=== PATIENT | female | born 1935 | race Caucasian/White ===

== ENCOUNTER 2020-07-22 12:47 | Outpatient (REF) | payer MEDICARE, OTHER, SELFPAY ==
--- NOTE | 2020-07-22 16:13 | MHC.AU.P13 ---
Adult Audiological Evaluation Date of Visit: 07/22/20 Reason for Appointment: Audiologic re-evaluation to determine possible change in hearing ability due to increased difficulties understanding speech. Previous Hearing Test Results: Normal hearing threshold at 250 Hz, dropping to a severe high frequency sensorineural hearing loss bilaterally. Medical History: Medical History: Diabetes Medical History: Crohn s Disease Hearing Instrument History- Right Ear: Computer Art Instructor: [employer] Model: OPN 3 mini RITE Serial Number: [id number] Battery Size: 312 Warranty: 01/26/2022 Hearing Instrument History- Left Ear: Computer Art Instructor: Oticon Model: OPN 3 mini RITE Serial Number: [id number] Battery Size: 312 Warranty: 11/20/2022 Otoscopy: Right Ear: Unremarkable Left Ear: Unremarkable Tympanometry: Right Ear: Normal Middle Ear System (Type A) Left Ear: Normal Middle Ear System (Type A) Hearing Evaluation: Transducer(s) Used: Insert Earphones Bone Conduction Method: Conventional Audiometry Stimuli Used: Pure Tones Right Ear: Description of Hearing: Normal hearing threshold at 250 Hz dropping to a severe high frequency sensorineural hearing loss Left Ear: Description of Hearing: Normal hearing level at 250 Hz dropping to severe high frequency sensorineural hearing l loss Speech Recognition Threshold (SRT): Method Used: Monitored Live Voice Stimuli Used: Spondee Words Right Ear: 30 dB HL Left Ear: 30 dB HL Word Discrimination: Method: Monitored Live Voice Word Lists Used: NU-6 Right Ear: 56% at a listening level of 70 dB HL 88% at a listening level of 80 dB HL Left Ear: 60% at a listening level of 70 dB HL 80% at a listening level of 80 dB HL Comparison: Compared to the most recent evaluation: Hearing is stable. Recommendations: Recommendations: Audiological re-evaluation in one year. Recommendations (Other): Hearing aids were re-programmed to try to improve the clarity of speech. If further adjustments are needed, advised to schedule another appointment Diagnosis: Primary Diagnosis: H90.3 Bilateral Sensorineural Hearing Loss Services Performed: Services Performed: Comprehensive Audiological Evaluation (CPT 97519) Tympanometry (CPT 71819) Signature: Student/Clinical Fellow: No I have reviewed/agreed with student/fellow documentation: N/A Provider: Roxi Lopez, [facility]
== END 2020-07-22 12:48 | disposition home or self-care (01) ==
LOC: HO.SH 12:47
PROVIDERS: PCP Internal Medicine; Visit Provider Internal Medicine
DX: H90.3 Sensorineural hearing loss, bilateral (principal); E11.9 Type 2 diabetes mellitus without complications; K50.90 Crohn's disease, unspecified, without complications
CPT/HCPCS: 92557; 92567

== ENCOUNTER 2021-01-20 11:42 | Outpatient (REF) | payer SELFPAY | END 2021-01-20 11:43 | disposition home or self-care (01) | LOC: HO.HAP 11:42 | PROVIDERS: Visit Provider Internal Medicine | DX: Z13.89 Encounter for screening for other disorder (principal) ==

== ENCOUNTER 2021-02-10 11:34 | Outpatient (REF) | payer SELFPAY | END 2021-02-10 11:35 | disposition home or self-care (01) | LOC: HO.HAP 11:34 | PROVIDERS: Visit Provider Internal Medicine | DX: Z13.89 Encounter for screening for other disorder (principal) ==

== ENCOUNTER 2021-04-03 13:31 | Outpatient (REF) | payer SELFPAY | END 2021-04-03 13:32 | disposition home or self-care (01) | LOC: HO.HAP 13:31 | PROVIDERS: Visit Provider Internal Medicine | DX: Z13.89 Encounter for screening for other disorder (principal) ==

== ENCOUNTER 2021-04-10 09:24 | Outpatient (REF) | payer SELFPAY ==
--- NOTE | 2021-04-10 10:13 | MHC.AU.HFU ---
Hearing Instrument Follow-Up- Binaural Date of Visit: 04/10/21 Right Ear: Dumper Bailer Operator: Oticon Model: OPN 3 mini RITE Serial Number: [id number] Repair Warranty: 01/26/2022 Loss and Damage Warranty: USED 04/03/2021 Battery Size: 312 Color: Terrac[employer] Wafers Etch Operator: #2 85 gain Type of Dome: 8 mm Open Type of Wax Guard: Prowax minifit Dispensed By: [facility] Date of Fittin01/28/2019 Left Ear: Dumper Bailer Operator: Oticon Model: OPN 3 mini RITE Serial Number: [id number] Repair Warranty: 11/20/2022 Loss and Damage Warranty: 11/20/2022 Battery Size: 312 Color: [employer] Wafers Etch Operator: #2 85 gain Type of Dome: 8 mm Open Type of Wax Guard: Prowax minifit Dispensed By: [facility] Date of Fittin10/29/2019 Follow-Up Summary: Patient reports she is not hearing well from the left aid. Otoscopy shows deep cerumen blocking view of most of the left tympanic membrane. Right ear clear. Used Ear Wax M.D. drops and attempted removal, but cerumen is vry deep. The drops started to dissolve the wax and most of the tympanic membrane is visible now. Patient reports improved hearing. If problem continues, advise ENT remove cerumen. Fit the replaced right aid with #2 85 gain timber cutter and 8mm open dome and programmed with the left aid to January 2021 settings. Patient reports improved hearing ability. Deleted the old right aid from the cell phone and [employer] araseli and connected both aids to phone and araseli and practiced. Patient needed to increase the volume of her phone for improved clarity of speaker's voice. Recommendations: Recommendations: Hearing instrument follow-up or maintenance as needed. Please contact our clinic with any questions or concerns. Diagnosis Code(s): Primary Diagnosis: H90.3 Bilateral Sensorineural Hearing Loss Services Performed: Loss and Damage Replacement Fee: 1 Signature: Provider: Roxi Lopez, [facility]
== END 2021-04-10 09:25 | disposition home or self-care (01) ==
LOC: HO.HAP 09:24
PROVIDERS: Visit Provider Internal Medicine
DX: Z46.1 Encounter for fitting and adjustment of hearing aid (principal); H90.3 Sensorineural hearing loss, bilateral
CPT/HCPCS: V5299

== ENCOUNTER 2021-04-17 10:51 | Outpatient (REF) | payer SELFPAY ==
--- NOTE | 2021-04-17 11:20 | MHC.AU.P13 ---
Hearing Instrument Problem Date of Visit: 04/17/21 Right Ear: Wet Process Head Miller: Oticon Model: OPN 3 mini RITE Serial Number: [id number] Repair Warranty: 01/26/2022 Loss and Damage Warranty: USED 04/03/2021 Battery Size: 312 Color: Terracotta Time Motion Analyst: #2 85 gain Type of Dome: 8 mm Open Type of Wax Guard: Prowax minifit Dispensed By: [facility] Date of Fittin01/28/2019 Left Ear: Wet Process Head Miller: Oticon Model: OPN 3 mini RITE Serial Number: [id number] Repair Warranty: 11/20/2022 Loss and Damage Warranty: 11/20/2022 Battery Size: 312 Color: Terracotta Time Motion Analyst: #2 85 gain Type of Dome: 8 mm Open Type of Wax Guard: Prowax minifit Dispensed By: [facility] Date of Fittin10/29/2019 Follow-Up Summary: Patient brought in right aid - not working at all. [facility] Recommendations: Recommendations: Patient will be contacted when materials have arrived. Signature: Provider: KARIS Flores-
== END 2021-04-17 10:52 | disposition home or self-care (01) ==
LOC: HO.HAP 10:51
PROVIDERS: Visit Provider Internal Medicine
DX: Z13.89 Encounter for screening for other disorder (principal)

== ENCOUNTER 2021-04-27 13:59 | Outpatient (REF) | payer SELFPAY | END 2021-04-27 14:00 | disposition home or self-care (01) | LOC: HO.HAP 13:59 | PROVIDERS: Visit Provider Internal Medicine | DX: Z13.89 Encounter for screening for other disorder (principal) ==

== ENCOUNTER 2022-05-28 10:48 | Outpatient (REF) | payer MEDICARE, OTHER, SELFPAY ==
--- NOTE | 2022-06-05 12:22 | MHC.AU.AHA ---
Adult Audiological Evaluation Date of Visit: 05/28/22 Franchise Consultant Used: Not Applicable Reason for Appointment: Audiologic re-evaluation to determine possible change in hearing ability. Jocelyn has a long-standing history of bilateral hearing loss and uses binaural hearing aids. Previous Hearing Test Results: 07/22/2020 [facility] Normal hearing threshold at 250 Hz, sloping to a moderately-severe sensorineural hearing loss bilaterally with 56% speech understanding for the right ear and 60% for the left ear at 70 dB HL Medical History: Medical History: Diabetes Medical History: Crohn s Disease Hearing Instrument History- Right Ear: Home Companion: Oticon Model: OPN 3 mini RITE Serial Number: [id number] Battery Size: 312 Repair Warranty: 01/26/2022 Loss and Damage Warranty: used 04/05/2021 - Patient reported finding the aid 05/28/2022 Dispensed By: [facility] Date of Fittin01/28/2019 Hearing Instrument History- Left Ear: Home Companion: Oticon Model: OPN 3 mini RITE Serial Number: [id number] Battery Size: 312 Warranty: 11/20/2022 Loss and Damage Warranty: 11/20/2022 Dispensed By: [facility] Date of Fittin10/29/2019 Otoscopy: Right Ear: Unremarkable Left Ear: Unremarkable Tympanometry: Tympanometry not performed as previus testing has indicated normal middle ear functio bilaterally Hearing Evaluation: Transducer(s) Used: Insert Earphones Bone Conduction Method: Conventional Audiometry Stimuli Used: Pure Tones Right Ear: Description of Hearing: Borderline normal hearing levels at 250 Hz, sloping to a moderately-severe high frequency sensorineural hearing loss Left Ear: Description of Hearing: Borderline normal hearing levels at 250 Hz, sloping to a moderately-severe high frequency sensorineural hearing loss Speech Recognition Threshold (SRT): Method Used: Monitored Live Voice Stimuli Used: Spondee Words Right Ear: 45 dB HL Left Ear: 45 dB HL Word Discrimination: Method: Monitored Live Voice Word Lists Used: NU-6 Right Ear: 80% at 85 dB HL Left Ear: 80% at 85 dB HL Comparison: Compared to the most recent evaluation: Thresholds have decreased in the left ear. Stable speech discrimination, both ears Recommendations: Patient wants to purchase a new hearing aid as her medical insurance covers a new hearing aid every 2 years. Medical clearance from a physician is required before fitting. Hearing aid maintenance performed today. Hearing aid(s) reprogrammed with updated test results. Audiological re-evaluation in one year. Diagnosis: Primary Diagnosis: H90.3 Bilateral Sensorineural Hearing [place] Signature: Provider: Roxi Lopez, EM[facility]
== END 2022-05-28 10:49 | disposition home or self-care (01) ==
LOC: HO.SH 10:48
PROVIDERS: Visit Provider Internal Medicine
DX: Z46.1 Encounter for fitting and adjustment of hearing aid (principal); H91.92 Unspecified hearing loss, left ear
CPT/HCPCS: 92557

== ENCOUNTER 2022-05-28 11:58 | Outpatient (REF) | payer SELFPAY ==
--- NOTE | 2022-05-28 15:17 | MHC.AU.HAS ---
Hearing Aid Evaluation Date of Visit: 05/28/22 Historical Information: Description of Hearing: Mild sloping to moderately-severe sensorineural hearing loss bilaterally Current personal amplification information, if applicable: Binaural Oticon OPN 3 mini RITE Summary: Patient recently found the right aid she previously lost and paid for L&D replacement. Patient is eligible for new hearing aid through [facility]. Will order a left aid as she already has 2 right aids. Hearing Aid Prescription: Based on the individual?s shared listening needs, communication environments, dexterity, desire for connectivity, and personal preferences, the following prescription for amplification has been made: Left ear: Electric Scoop Operator: Oticon Model: OPN 3 mini RITE Battery Size: 312 Color: Terracotta Credit Products Officer: #2 85 gain Type of Dome: 10 mm Open Plan of Care: Patient wishes to purchase hearing aids as prescribed Action Taken/Action Needed: Medical Clearance to be requested from PCP/ENT Hearing Instrument Fitting to be scheduled when materials arrive Primary Diagnosis: 90.3 Bilateral SNHL Signature:Provider: Shannan Lpoez, EM[facility]
--- NOTE | 2022-05-28 15:19 | MHC.AU.MED ---
Medical Clearance for Hearing Instrumentation Date: 05/28/22 Patient Name: Jocelyn Mccall Date of : 1935 Primary Care Provider: Referring Provider: Jolynn Mead MD We have seen your patient on 05/28/22 and have determined that they are a candidate for amplification (See accompanying report). Specifically, they would benefit from: Hearing aid use in both ears There is a statute that addresses Medical Evaluation Requirements prior to fitting a patient with a hearing aid. According to [place] statute 265 CMR:6.03(1), (a) General. Except as provided in 265 CMR 6.03(1)(b), a correctional manager shall not sell a hearing aid unless the prospective user has presented to the correctional manager a written statement signed by a licensed physician that states that the patient's hearing loss has been medically evaluated and the patient may be considered a candidate for a hearing aid. The medical evaluation must have taken place within the preceding six months. Please note: Due to the [place] Statute referenced above, we cannot accept a signature other than that of a licensed physician. OIL WINTERIZER and PA signatures cannot be accepted. I am in agreement with the above recommendation. There is no medical contraindication for hearing instrumentation. Physician Signature Date Physician Name (Printed)
== END 2022-05-28 11:59 | disposition home or self-care (01) ==
LOC: HO.HAP 11:58
PROVIDERS: Visit Provider Internal Medicine
DX: Z46.1 Encounter for fitting and adjustment of hearing aid (principal); H90.3 Sensorineural hearing loss, bilateral
CPT/HCPCS: 92591

== ENCOUNTER 2022-07-27 12:52 | Outpatient (REF) | payer OTHER, SELFPAY | END 2022-07-27 12:53 | disposition home or self-care (01) | LOC: HO.HAP 12:52 | PROVIDERS: Visit Provider Internal Medicine | DX: Z46.1 Encounter for fitting and adjustment of hearing aid (principal); H90.3 Sensorineural hearing loss, bilateral | CPT/HCPCS: 92700; V5257 ==

== ENCOUNTER 2022-12-21 12:18 | Outpatient (REF) | payer SELFPAY | END 2022-12-21 12:19 | disposition home or self-care (01) | LOC: HO.HAP 12:18 | PROVIDERS: Visit Provider Internal Medicine | DX: Z13.89 Encounter for screening for other disorder (principal) ==

== ENCOUNTER 2023-11-15 12:22 | Outpatient (REF) | payer MEDICARE, OTHER, SELFPAY ==
--- NOTE | 2023-11-15 13:54 | MHC.AU.HA3 ---
Hearing Instrument Follow-Up- Binaural Date of Visit: 11/15/23 Right Ear: Model Aquilino, Color, Serial Number: Tatiana OPN 3 Mery Good #[id number] (replacement for [id number] L&D used 04/05/21 then aid found 05/28/22) Border Patrol Officer Repair Warranty: 01/26/2022 Border Patrol Officer Loss and Damage Warranty: used 04/05/2021 - Patient reported finding the aid 05/28/2022 [facility] Service Plan: Battery Size: 312 Regional Account Director/Slim Tube: 2 85 gain Earmold/Dome/CShell/SlimTip:10 mm Open Type of Wax Guard: Prowax minifit Dispensed By: [facility] Date of Fittin01/28/2019 Left Ear: Model Aquilino, Color, Serial Number: Tatiana OPN S 3 Mery Good #[id number] Border Patrol Officer Repair Warranty: 07/05/2025 Border Patrol Officer Loss and Damage Warranty: 07/05/25 [facility] Service Plan: Battery Size: 312 Regional Account Director/Slim Tube: #2 85 gain Earmold/Dome/CShell/SlimTip: 10 mm Open Type of Wax Guard: Prowax minifit Dispensed By: [facility] Date of Fittin10/29/2019 Follow-Up Summary: Jocelyn was scheduled for evaluation today. She is interested in pursuing new binaural amplification now that she has an increased benefit with [employer]. As she last used her benefit in Jul 2022, I recommended postponing evaluation so that it may be done within six months of an anticipated new fitting date. She brought with her 4 hearing aids today, reporting that some work and some don't and she isn't sure if they're broken or just in need of cleaning. Cleaned and checked two right OPN 3 aids, one left OPN 3, and one left OPN S 3. All functional with positive listening check after cleaning, dome change, and wax guard change. Jocelyn departed today with a pair of OPN aids on her ears and connected to her iPhone, the remaining aids were placed in her carrying case. Recommendations: Recommendations: Hearing instrument follow-up or maintenance as needed. Please contact our clinic with any questions or concerns. Return for evaluation as scheduled. Diagnosis Code(s): Primary Diagnosis: H90.3 Bilateral Sensorineural Hearing Loss Signature: Provider: Lola Rojo, [facility]
== END 2023-11-15 12:23 | disposition home or self-care (01) ==
LOC: HO.SH 12:22
PROVIDERS: Visit Provider Internal Medicine
DX: Z13.89 Encounter for screening for other disorder (principal)

== ENCOUNTER 2024-05-28 14:31 | Outpatient (REF) | payer SELFPAY | END 2024-05-28 14:32 | disposition home or self-care (01) | LOC: HO.HAP 14:31 | PROVIDERS: PCP Internal Medicine; Visit Provider Internal Medicine | DX: Z13.89 Encounter for screening for other disorder (principal) ==

== ENCOUNTER 2024-06-12 12:38 | Outpatient (REF) | payer MEDICARE, OTHER, SELFPAY | END 2024-06-12 12:39 | disposition home or self-care (01) | LOC: HO.SH 12:38 | PROVIDERS: Visit Provider Internal Medicine | DX: Z01.118 Encounter for examination of ears and hearing with other abnormal findings (principal); H90.3 Sensorineural hearing loss, bilateral | CPT/HCPCS: 92552; 92556 ==

== ENCOUNTER 2024-07-03 09:10 | Outpatient (REF) | payer MEDICARE, OTHER, SELFPAY ==
--- NOTE | 2024-07-03 12:30 | MHC.AU.HA3 ---
Hearing Instrument Follow-Up- Binaural Date of Visit: 07/03/24 Right Ear: Aquilino, Model, Color, Serial Number: Tatiana OPN S3 Mery Good #[id number] Hydro Excavation Operator Repair Warranty: 08/26/25 Hydro Excavation Operator Loss and Damage Warranty: 08/26/25 [facility] Service Plan: 08/26/25 Battery Size: 312 Cath Lab Radiological Technologist/Slim Tube: 2 85 gain Earmold/Dome/CShell/SlimTip:10 mm closed Type of Wax Guard: Prowax minifit Dispensed By: [facility] Date of Fittin07/27/22 Left Ear: Aquilino, Model, Color, Serial Number: Tatiana OPN 3 Mery Good #[id number] Hydro Excavation Operator Repair Warranty: 11/20/22 Hydro Excavation Operator Loss and Damage Warranty: 11/20/22 [facility] Service Plan: Battery Size: 312 Cath Lab Radiological Technologist/Slim Tube: #2 85 gain Earmold/Dome/CShell/SlimTip: 10 mm closed Type of Wax Guard: Prowax minifit Dispensed By: [facility] Date of Fittin10/29/2019 Follow-Up Summary: Jocelyn reports she dropped her right Opn 3 in a glass of water. Would like the left Opn S 3 that she hadn't been wearing made to work for her right ear. Put on a right helper driver and mimiced settings in the right Opn 3 to the Opn S 3. Good subjective comfort and benefit reported. Recommendations: Recommendations : Return as scheduled for hearing aid consultation. Diagnosis Code(s): Primary Diagnosis: H90.3 Bilateral Sensorineural Hearing Loss Signature: Provider: Lola Rojo, [facility]
== END 2024-07-03 09:11 | disposition home or self-care (01) ==
LOC: HO.HAP 09:10
PROVIDERS: Visit Provider Internal Medicine
DX: Z13.89 Encounter for screening for other disorder (principal)

== ENCOUNTER 2024-07-13 15:10 | Outpatient (REF) | payer SELFPAY ==
--- NOTE | 2024-07-14 12:37 | MHC.AU.HA1 ---
Hearing Aid Evaluation Date of Visit: 07/13/24 Historical Information: Description of Hearing: Borderline normal sloping to severe sensorineural hearing loss, bilateral. Current personal amplification information, if applicable: Opn S3 miniRITE on the right ear, Opn 3 miniRITE on the left ear. Summary: Jocelyn has been wearing mismatched hearing aid models for some time now and has been frustrated with phone connectivity issues. She uses an iPhone. Additionally, she notes frustration hearing in environments such as parties and restaurants. Discussed new amplification options. Recommended binaural pair of matched technology. Jocelyn notes preference for battery operated aids over rechargeable. She is interested in remote microphone technology. Hearing Aid Prescription: Based on the individual?s shared listening needs, communication environments, dexterity, desire for connectivity, and personal preferences, the following prescription for amplification has been made: Right ear: Make, Model, Color: Oticon Real 1 miniRITE T chestnut Battery Size: 312 Reading Intervention Teacher/Slim Tube: 2 85 Type of Earmold/Dome/CShell/SlimTip: 10 mm closed Left ear: Make, Model, Color: Oticon Real 1 miniRITE T chestnut Battery Size: 312 Reading Intervention Teacher/Slim Tube: 2 85 Type of Earmold/Dome/CShell/SlimTip: 10 mm closed Plan of Care: Patient wishes to purchase hearing aids as prescribed Action Taken/Action Needed: Medical Clearance to be requested from PCP/ENT Hearing Instrument Fitting to be scheduled when materials arrive Comments: Do not fit before 07/27/24. Primary Diagnosis: H90.3 Bilateral Sensorineural Hearing Loss Signature: Provider: Lola Rojo, [facility]
== END 2024-07-13 15:11 | disposition home or self-care (01) ==
LOC: HO.HAP 15:10
PROVIDERS: Visit Provider Internal Medicine
DX: Z46.1 Encounter for fitting and adjustment of hearing aid (principal); H90.3 Sensorineural hearing loss, bilateral
CPT/HCPCS: 92590

== ENCOUNTER 2024-08-05 14:28 | Outpatient (REF) | payer SELFPAY ==
--- NOTE | 2024-08-05 16:32 | MHC.AU.HA2 ---
Hearing Instrument Fitting- Adult- Binaural Date of Visit: 08/05/24 Hearing Instruments Dispensed: Right Ear: Make, Model, Color, Serial Number: Oticon Real 1 miniRITE T chestnut [id number] Student Outreach Coordinator Repair Warranty: 08/13/2027 Student Outreach Coordinator Loss and Damage Warranty: 08/13/2027 [facility] Service Plan: 08/26/2025 (carried over from her last purchase, Jocelyn opted out of service plan on these aids and will have to pay for services after 08/26/25) Battery Size: 312 Yeast Tender/Slim Tube: 2 85 Earmold/Dome/CShell/SlimTip: 10 mm closed Type of Wax Guard: Prowax minifit Left Ear: Make, Model, Color, Serial Number: Oticon Real 1 miniRITE T chestnut [id number] Student Outreach Coordinator Repair Warranty: 08/13/2027 Student Outreach Coordinator Loss and Damage Warranty: 08/13/2027 [facility] Service Plan: 08/26/2025 (carried over from her last purchase, Joeclyn opted out of service plan on these aids and will have to pay for services after 08/26/25) Battery Size: 312 Yeast Tender/Slim Tube: 2 85 Earmold/Dome/CShell/SlimTip: 10 mm closed Type of Wax Guard: Prowax minifit Accessories/Assistive Technology: Oticon Connectclip [id number] Warranty 08/13/2025 Summary of Fitting: Fit with and oriented to binaural Oticon Real 1 miniRITE T HAs. Verified to L 5 Adult targets. VC enabled, reviewed use. Reviewed precautions and maintenance- long time hearing aid user. Jocelyn took her old aids, packed up in the new hearing aid case. Paired with promotional connect clip and reviewed use as remote microphone. Paired with phone and connected with araseli. Sent up front to pay and schedule follow up, provided itemized receipt for insurance reimbursement claim. Recommendations: Recommendations: A hearing instrument follow-up was scheduled. Diagnosis Code(s): Primary Diagnosis: H90.3 Bilateral Sensorineural Hearing Loss Signature: Provider: Lola Rojo, CCC-A
== END 2024-08-05 14:29 | disposition home or self-care (01) ==
LOC: HO.HAP 14:28
PROVIDERS: Visit Provider Internal Medicine
DX: Z46.1 Encounter for fitting and adjustment of hearing aid (principal); H90.3 Sensorineural hearing loss, bilateral
CPT/HCPCS: V5262

== ENCOUNTER 2024-08-31 13:52 | Outpatient (REF) | payer SELFPAY ==
--- NOTE | 2024-08-31 16:23 | MHC.AU.HA3 ---
Hearing Instrument Follow-Up- Binaural Date of Visit: 08/31/24 Right Ear: Make, Model, Color, Serial Number: Oticon Real 1 miniRITE T chestnut [id number] Vessel Engineer Repair Warranty: 08/13/2027 Vessel Engineer Loss and Damage Warranty: 08/13/2027 [facility] Service Plan: 08/26/2025 (carried over from her last purchase, Jocelyn opted out of service plan on these aids and will have to pay for services after 08/26/25) Battery Size: 312 Technical Service Representative/Slim Tube: 2 85 Earmold/Dome/CShell/SlimTip:10 mm closed Type of Wax Guard: Prowax minifit Dispensed By: [facility] Date of Fittin08/05/2024 Left Ear: Make, Model, Color, Serial Number: Oticon Real 1 miniRITE T chestnut [id number] Vessel Engineer Repair Warranty: 08/13/2027 Vessel Engineer Loss and Damage Warranty: 08/13/2027 [facility] Service Plan: 08/26/2025 (carried over from her last purchase, Jocelyn opted out of service plan on these aids and will have to pay for services after 08/26/25) Battery Size: 312 Technical Service Representative/Slim Tube: 2 85 Earmold/Dome/CShell/SlimTip: 10 mm closed Type of Wax Guard: Prowax minifit Dispensed By: [facility] Date of Fittin08/05/2024 Follow-Up Summary: Seen for follow up on recently fit Oticon Real 1 HAs. Jocelyn reports doing well except when listening to music. Reports she has found live music to be too tinny. Also having problems with phone connection. Added a music program, reviewed use. Found Jocelyn's phone not finding the hearing aids. Ensured ConnectClip was off. Turned aids off and on, forgot them and attempted re-pairing them. Ultimately the phone paired with the hearing aids after the phone was restarted. Advised to open and close battery doors and re-start phone if she has connectivity problems in the future. Recommended additional follow up to check on music program and phone issues. Recommendations: Recommendations: An additional follow-up was scheduled to monitor progress. Diagnosis Code(s): Primary Diagnosis: H90.3 Bilateral Sensorineural Hearing Loss Signature: Provider: Lola Rojo, CCC-A
== END 2024-08-31 13:53 | disposition home or self-care (01) ==
LOC: HO.HAP 13:52
PROVIDERS: Visit Provider Internal Medicine
DX: Z13.89 Encounter for screening for other disorder (principal)

== ENCOUNTER 2024-09-25 10:46 | Outpatient (REF) | payer SELFPAY ==
--- NOTE | 2024-09-25 13:32 | MHC.AU.HA3 ---
Hearing Instrument Follow-Up- Binaural Date of Visit: 09/25/24 Right Ear: Make, Model, Color, Serial Number: Oticon Real 1 miniRITE T chestnut [id number] Solar Energy System Installer Helper Repair Warranty: 08/13/2027 Solar Energy System Installer Helper Loss and Damage Warranty: 08/13/2027 [facility] Service Plan: 08/26/2025 (carried over from her last purchase, Jocelyn opted out of service plan on these aids and will have to pay for services after 08/26/25) Battery Size: 312 Chief Mechanical Officer/Slim Tube: 2 85 Earmold/Dome/CShell/SlimTip:10 mm closed Type of Wax Guard: Prowax minifit Dispensed By: [facility] Date of Fittin08/05/2024 Left Ear: Make, Model, Color, Serial Number: Oticon Real 1 miniRITE T chestnut [id number] Solar Energy System Installer Helper Repair Warranty: 08/13/2027 Solar Energy System Installer Helper Loss and Damage Warranty: 08/13/2027 [facility] Service Plan: 08/26/2025 (carried over from her last purchase, Jocelyn opted out of service plan on these aids and will have to pay for services after 08/26/25) Battery Size: 312 Chief Mechanical Officer/Slim Tube: 2 85 Earmold/Dome/CShell/SlimTip: 10 mm closed Type of Wax Guard: Prowax minifit Dispensed By: [facility] Date of Fittin08/05/2024 Follow-Up Summary: Seen for follow up. Jocelyn reports ongoing problems with connectivity. It can be a struggle to get the streaming working, while at times it seems to happen automatically. Jocelyn is working with her iphone and her ipad, she also has a bluetooth speaker that she uses at times. Discussed the challenges presented when multiple devices are involved in streaming connections. Also noted that issues with iphone to ipad handoff with hearing aids have been noted following [email or web address] updates. She reports talking to [employer] and they advised her to clear her cache on her ipad and that seemed to help. Checked iphone settings and araseli to make sure everything looks correct. Showed how to select audio device during a call on iPhone. Provided [employer] connectivity support hotline as I believe it would be beneficial for Jocelyn to be able to speak with someone at [employer] while she is in her home environment with multiple devices present and they may have suggestions or settings that should be looked at. Otherwise, Jocelyn reports the hearing aids are working well. She plans to return for maintenance as needed. Recommendations: Recommendations: Hearing instrument follow-up or maintenance as needed. Diagnosis Code(s): Primary Diagnosis: H90.3 Bilateral Sensorineural Hearing Loss Signature: Provider: Lola Rojo, [facility]
== END 2024-09-25 10:47 | disposition home or self-care (01) ==
LOC: HO.HAP 10:46
PROVIDERS: Visit Provider Internal Medicine
DX: Z13.89 Encounter for screening for other disorder (principal)

== ENCOUNTER 2025-03-26 13:10 | Outpatient (REF) | payer SELFPAY ==
--- OUTSIDE RECORDS SUMMARY | 2025-03-26 13:12 | XMS_ITS | Data Portability ---
Author Organization [facility] Kaylyn KING'S Address [address] [place] [address] Care Team Providers Care Template Layout Worker Name Role Phone CHAPIN MARLYS Referring Provider Assessment Encounter Date Assessment Date Assessment LastModified by Organization Details LastModified Time 02/24/2013 02/24/2013 Recommendation: I recommend to dispense prescription as written. Patient should follow physician's orders for therapy and other services. Brace is for the day Functional Goals: Protect feet [email or web address] Not available 03/03/2013 10:37:00 04/13/2013 04/13/2013 I didobserve the patient ambulate successfully. Patient states both sandals and new shoes (w/each of their new custom orthotics) are comfortable. Functional Goals: Pressure dispesement Increased Stability dispersement of pressures [email or web address] Not available 04/13/2013 17:39:20 05/28/2013 05/28/2013 Jocelyn (77 yo F) was seen today for adjustment to her R diabetic shoe and R inserts. Pt presents today with small scabbing on 2nd digit IP due to hammertoes. Skin condition is healthy on L foot and shoe/FO fit appears to have enough room in the toe box. Pt reports neuropathy and she checks her skin conditiong on regular basis. Pt prefers to wear the shoes with the 1/8 blue liner under the custom inserts. R inserts were thinned at foot plate, blue liner trimmed at toe plate and shoes spot relieved at site of 2nd hammertoe with shoe stretcher. Pt immediately notices more room in the shoe and the 2nd digit is no longer pushing against the surface. Pt lives in [place], [place] and would like to find pedorthic provider closer to home. I provided list of 4 O&P offices in [facility]. I did observe the patient ambulate successfully. [email or web address] Not available 05/28/2013 16:41:44 03/22/2017 03/22/2017 Custom Device: Is a custom device needed for this patient? NO Reasons for Custom Device: Explain Reasoning: The patient will be seen on an as needed basis. Orthosis: is in stock and delivered today. Device delivered: Prefab, OTS If Prefab, Custom Fit, explain modifications - what was done and why: If Custom device, state reasons and provide narrative: Explain Reasoning: Orthotic Goals: Choose all that apply Provide Support Limit Motion Positioning Improve Stability Promote Healing Other (please specify): [email or web address] Not available 03/22/2017 15:01:50 Plan of Treatment Reminders Order Date Submit Date Provider Last Modified By Organization Details Last Modified Time Details Appointments None record ed. Lab None record ed. Referral None record ed. Procedures None record ed. Surgeries None record ed. Imaging None record ed. Medication Orders None record ed. Patient TargetsNo targets recorded. Patient Instructions Encounter Date Encounter Id Patient Instructions Last Modified By Organization Details Last Modified Time 02/24/2013 [id number] The following wa s discussed with the patient regarding a follow up plan Patient was provided with my business card and asked to call if any questions arise. [email or web address] Not available 03/03/2013 10:37:00 04/13/2013 [id number] The caregiverwasinstructed on a break-in period. Patient encouraged to slowly break in sandal inserts; as these inserts by fabrication are firmer than the ones for the PW minor shoes. The patientwasinstructed on skin checks and hygiene. The patientdidvoice an understanding of these directions. The patientdidreceive written instructions. The patientwas provided with our numbers and instructed to call with any questions or problems. [email or web address] Not available 04/13/2013 17:39:20 05/28/2013 [id number] Pt lives in [facility] and did not bring another pair of shoes with her today, unable to keep the shoes overnight due to these reasons. Explained that the shoe may need to be restretched if it does flatten a bit after today's adjustment. Pt understands and agrees to f/u with any concerns. [email or web address] Not available 05/28/2013 16:41:44 03/22/2017 [id number] Device provided has good fit and function. Patient agrees with my assessment. Patient does understand wear and care of device. Patient does understand how to don and doff the device. Patient received written instructions. Patient was provided with my business card and agrees to call if any problems. [email or web address] Not available 03/22/2017 15:00:41 Reason for Referral None Reported. 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 Procedures Surgical History Date Name Laterality Status Provider Name and Address Organization Details Recorded Time 7 BI Procedures completed Nicolas Rosa [place] [facility] 03/22/2017 15:01:37 3 DMO Follow Up completed Sabiha Helton [place] [facility] 05/28/2013 16:29:18 3 Lower Extremity Fitting II completed Erin Glez, CO [address], [place], [address], [facility] 04/13/2013 17:39:20 3 Lower Extemity Eval completed Kori Martínez [facility] 02/27/2013 16:08:06 Imaging Results None recorded. Procedure Notes None recorded. Medical Equipment None Reported. Vitals None Recorded Social History None recorded. Functional Status None recorded. Mental Status None recorded. Family History Nothing Reported. Medical History No medical history recorded. Gynecological HistoryNo gynecological history recorded. Obstetrics History GPAL:G 0 P 0 0 0 0 Past Encounters Encounter ID Performer Location Encounter Start Date Encounter Closed Date Diagnosis/Indication Diagnosis SNOMED-CT Code Diagnosis ICD10 Code Diagnosis Note [id number] Lisandro Witt [address] [place] [address] 08/09/2011 11:35:04 08/10/2011 08:52:38 [id number] Kori Martínez CPO [address] [place] [address] 02/24/2013 12:55:30 03/03/2013 11:26:53 [id number] Erin Sutherlandty, [place] [address] [place] [address] 04/13/2013 12:21:08 04/13/2013 17:39:27 [id number] Sabiha Helton, AUTOMATIC DEVELOPER [address] [place] [address] 05/28/2013 11:46:22 05/29/2013 12:15:01 [id number] SAMMIE Pruitt, special forces warrant officer [facility] [address] [place] [address] 03/22/2017 13:39:59 03/25/2017 10:20:16 Fracture of tibial plateau 335920881 S82.122A Health Concerns Section Related Observation LastModified by Organization Detai ls LastModified Time None Recorded Concern Status LastModified by Organization Details LastModified Time None Recorded Advance Directives Directive None Recorded Payers Encounter Date Sequence Insurance Name Policy Number Policy Osorio Covered Member ID Osorio Member ID Guarantor Name 08/09/2011 [employer] - [employer] CLAIMS (MEDICARE [place]ME [place]) Jocelyn Mccall [id number] Jayy Mccall 08/09/2011 [facility] (INDEMNITY) [id number] Jayy Mccall [id number] Jayy Mccall 02/24/2013 [employer] (MEDICARE DME [place]ION A) Jocelyn Mccall [id number] Jayy Mccall 04/13/2013 [facility] ([place]DEMNITY) [id number] Jayy Mccall [id number] Jayy Mccall 05/28/2013 [employer] (MEDICARE DME [place]) Jocelyn Mccall [id number] Jayy Mccall 03/22/2017 [employer] (MEDICARE DME [place] A) Jocelyn Mccall [id number] Jayy Mccall Notes Date Note Type Note Provider Name and Address Organization Details Recorded Time 03/22/2017 text/html BI HPIReported bypatient.patient is:Out Patient patient accompaniedpatient not accompanied Pain?location(left leg);level 6/10Notes:Patient fit with size xlarge, short, hinged, KO to left leg. Nicolasmalachi alfred [place] [facility] 03/22/2017 15:03:13 OBGyn Episode No OBEpisode recorded.
--- NOTE | 2025-03-26 14:12 | MHC.AU.HA3 ---
Hearing Instrument Follow-Up- Binaural Date of Visit: 03/26/25 Right Ear: Make, Model, Color, Serial Number: Oticon Real 1 miniRITE T chestnut [id number] [employer] Data [employer] Engineer Repair Warranty: 08/13/2027 [employer] Engineer Loss and Damage Warranty: 08/13/2027 [facility] Service Plan: 08/26/2025 (carried over from her last purchase, Jocelyn opted out of service plan on these aids and will have to pay for services after 08/26/25) Battery Size: 312 Finishing Range Supervisor/Slim Tube: 2 85 Earmold/Dome/CShell/SlimTip:10 mm closed Type of Wax Guard: Prowax minifit Dispensed By: [facility] Date of Fittin08/05/2024 Left Ear: Make, Model, Color, Serial Number: Oticon Real 1 miniRITE T chestnut [id number] [employer] Data [employer] Engineer Repair Warranty: 08/13/2027 [employer] Engineer Loss and Damage Warranty: 08/13/2027 [facility] Service Plan: 08/26/2025 (carried over from her last purchase, Jocelyn opted out of service plan on these aids and will have to pay for services after 08/26/25) Battery Size: 312 Finishing Range Supervisor/Slim Tube: 2 85 Earmold/Dome/CShell/SlimTip: 10 mm closed Type of Wax Guard: Prowax minifit Dispensed By: [facility] Date of Fittin08/05/2024 Follow-Up Summary: Jocelyn reports the ability to adjust equalizer is no longer present in her araseli. Initially I thought perhaps the araseli had updated and features changed, but then discovered Jocelyn had her old hearing aids connected to her phone. She had mixed up which hearing aids were which. Cleaned her old hearing aids and her new hearing aids. Listening check positive. Updated firmware in new hearing aids (Real). Uninstalled and reinstalled araseli. Paired new hearing aids with phone. Equalizer function returned. Noted to Jocelyn that, in addition to being larger, the Reals are distinguishable by OTICON printed down the side of the hearing aid body. All set. Recommendations: Recommendations: Hearing instrument follow-up or maintenance as needed. Diagnosis Code(s): Primary Diagnosis: H90.3 Bilateral Sensorineural Hearing Loss Signature: Provider: Lola Rojo, CCC-A
== END 2025-03-26 13:11 | disposition home or self-care (01) ==
LOC: HO.HAP 13:10
PROVIDERS: Visit Provider Internal Medicine
DX: Z13.89 Encounter for screening for other disorder (principal)